=== PATIENT | male | born 1960 | race Asian ===

== ENCOUNTER → 2024-10-22 | Outpatient (CLI) | payer BC, SELFPAY ==
[2024-10-22 12:33] LABS: Glucose Estimated Average 123 mg/dL (80-131); Hemoglobin A1C 5.9 % Hgb (4.8-6.0)
[2024-10-22 12:52] LABS: Alanine Aminotransferase 40 U/L (10-49); Albumin, Serum 4.7 gm/dL (3.4-4.8); Albumin/Globulin Ratio 1.7 (1.2-2.2); Alkaline Phosphatase 74 U/L (46-116); Anion Gap 10 (7-16); Aspartate Amino Transferase 23 U/L (0-34); BUN/Creatinine Ratio 12 Ratio (12-20); Bilirubin,Total 0.8 mg/dL (0.3-1.2); Blood Urea Nitrogen 17 mg/dL (9-23); Calcium 10.1 mg/dL (8.3-10.6); Calcium (Corrected) 10.1 mg/dL (8.5-10.1); Carbon Dioxide 27.4 mMol/L (20.0-31.0); Cardiac Risk Estimate 2.8 RATIO (4.0-6.7); Chloride 103 mMol/L (98-107); Cholesterol 156 mg/dL (132-200); Creatinine (Component) 1.4 mg/dL (0.6-1.3); Globulin 2.8 gm/dL (2.3-3.5); Glucose 101 mg/dL (74-106); HDL Cholesterol 56 mg/dL (40-60); LDL Cholesterol,Calculated 73 mg/dL (0-130); Osmolality,Calculated 280 (275-295); Potassium 5.1 mMol/L (3.4-5.1); Sodium 140 mMol/L (136-145); Total Protein 7.5 gm/dL (5.7-8.2); Triglycerides 136 mg/dL (30-150); Uric Acid 6.6 mg/dL (3.7-9.2); eGFR 56 See Note
== END | disposition home or self-care (01) ==
LOC: COPL 11:14
PROVIDERS: PCP Family Medicine; Referring Provider Family Medicine; Visit Provider Family Medicine
DX: E78.2 Mixed hyperlipidemia (principal); E11.9 Type 2 diabetes mellitus without complications; M10.9 Gout, unspecified
CPT/HCPCS: 36415; 80053; 80061; 83036; 84550

== ENCOUNTER 2024-11-06 17:12 | Emergency (ER) | payer BC, SELFPAY ==
[2024-11-06 17:14] VITALS: BMI 34.4
[2024-11-06 17:22] VITALS: BP 145/89; PULSE 84; RESP 16; TEMP 36.6; O2SAT 97
--- NOTE | 2024-11-06 17:43 | EKG_ITS ---
[facility] Test Date: 2024-11-06 Pat Name: REGAN BIRD Department: Room: - Gender: Male Senior Reliability Engineer: : 1960 Requested By: Wade Decker Order Number: [id number] Reading MD: Wade Decker Measurements Intervals [place] Rate: 72 P: 48 OK: 191 QRS: -9 QRSD: 106 T: 46 QT: 359 QTc: 395 Interpretive Statements SINUS RHYTHM INDETERMINATE AXIS PATTERN CONSISTENT WITH PULMONARY DISEASE Compared to ECG 03/17/2023 17:19:13 Indeterminate axis now present /store/S0/[id number]/ecg/[id number].pdf
--- NOTE | 2024-11-06 17:43 | XR_ITS ---
Examination: PA lateral chest 2 views TECHNIQUE: Upright PA and lateral chest 2 views Exam date and time: November 06, 2024, 1807 hours Comparison March 18, 2023 INDICATIONS: Back pain chest pain today FINDINGS: Normal heart size. Lungs are clear. Moderate thoracic spondylosis IMPRESSION: No active disease.
--- NOTE | 2024-11-06 17:44 | XR_ITS ---
Examination: CTA chest with intravenous contrast 2-D reconstructions 3-D reconstructions, vascular Date and time of exam: November 06, 2024 10:33 PM INDICATIONS: Back pain chest pain shortness of breath today CTDI: vol (mGy) 15 DLP: (mGycm) 698 Technique: Multiple axial sections of the thorax have been obtained. 3 mm slice thickness, from below the hemidiaphragms to above the apices of the lungs. Mediastinal and lung density settings have been obtained. 2-D sagittal and coronal reconstructions. 3-D angiographic renderings, 3-D volume renderings, 3D post processing, vascular maximum intensity projections obtained. Contrast administered is ACC Isovue 300. Low dose protocols were performed. One or more of the following dose reduction techniques were used; automated exposure control, adjustment of the mA and/or KV according to patient size, use of iterative reconstruction technique. Findings: No thoracic aortic aneurysm and dilatation Main pulmonary artery segment 32 mm No pulmonary artery filling defects No paratracheal tracheobronchial or bronchopulmonary adenopathy 5 mm pulmonary nodule left lower lobe image 243 No pneumonia or pulmonary edema No bladder disease No visualized liver or splenic lesion Tiny gallstones No pancreatic or adrenal mass Left kidney not visualized IMPRESSION: Negative for pulmonary artery emboli No mediastinal lymphadenopathy. No pneumonia or pulmonary edema 5 mm pulmonary nodule left lower lobe, recommend 6 month follow-up CT chest without contrast to document stability of this nodule
--- NOTE | 2024-11-06 17:44 | PD.EDRME ---
Rapid Medical Screening Exam E Arrival date/time: 11/06/24 17:12 64-year-old male with a history of hypertension, pulmonary embolism on Xarelto presents to the emergency room with a chief complaint of thoracic back pain, pain with inspiration x 1 day. I have greeted and performed a focused initial assessment of this patient. A comprehensive ED assessment and evaluation of the patient, analysis of all test results, and completion of the medical decision making process will be conducted by additional ED providers. Chief Complaint: Back Pain/Injury Vital signs: Vital Signs Temperature 97.9 F 11/06/24 17:22 Pulse Rate 84 11/06/24 17:22 Respiratory Rate 16 11/06/24 17:22 Blood Pressure 145/89 H 11/06/24 17:22 Pulse Oximetry (%) 97 11/06/24 17:22 Oxygen Delivery Method Room Air 11/06/24 17:22 Vital signs reviewed by provider: Yes
[2024-11-06 18:08] LABS: Basophils # (Auto) 0.1 Thou/mm3 (0.0-0.2); Basophils % (Auto) 1 % (0-2.5); Eosinophils # (Auto) 0.1 Thou/mm3 (0.0-0.5); Eosinophils % (Auto) 2 % (0-10); Hematocrit 44.9 % (41.0-53.0); Hemoglobin 15.3 g/dL (13.5-16.0); Immature Granulocytes % (Auto) 0 % (0-0); Immature Granulocytes Auto 0.01 Thou/mm3 (0.00-0.00); Lymphocytes # (Auto) 1.6 Thou/mm3 (1.0-4.8); Lymphocytes % (Auto) 26 % (10-50); Mean Corpuscular HGB Conc 34.1 g/dl (31.0-37.0); Mean Corpuscular Hemoglobin 29.2 pg (25.0-35.0); Mean Corpuscular Volume 86 fL (80-100); Monocytes # (Auto) 0.5 Thou/mm3 (0.0-0.8); Monocytes % (Auto) 8 % (0-12); Neutrophils % (Auto) 63 % (37-80); Nucleated Red Blood Cell % 0 /100 WBC (0); Platelet Count 224 Thou/mm3 (140-440); RDW Standard Deviation 41.9 fL (35.1-43.9); Red Blood Count 5.24 Miln/mm3 (4.50-5.90); White Blood Count 6.3 Thou/mm3 (3.8-10.6)
[2024-11-06 18:23] LABS: INR 1.1 (0.9-1.3); Partial Thromboplastin Time 33.6 Seconds (22.0-36.0); Prothrombin Time 11.7 Seconds (9.0-12.2)
[2024-11-06 18:25] LABS: B-Type Natriuretic Peptide < 20 pg/mL (0-100)
[2024-11-06 18:26] LABS: Alanine Aminotransferase 33 U/L (10-49); Albumin, Serum 4.7 gm/dL (3.4-4.8); Albumin/Globulin Ratio 1.6 (1.2-2.2); Alkaline Phosphatase 69 U/L (46-116); Anion Gap 7 (7-16); Aspartate Amino Transferase 30 U/L (0-34); BUN/Creatinine Ratio 11 Ratio (12-20); Bilirubin,Total 0.7 mg/dL (0.3-1.2); Blood Urea Nitrogen 17 mg/dL (9-23); Carbon Dioxide 27.8 mMol/L (20.0-31.0); Chloride 108 mMol/L (98-107); Creatinine (Component) 1.5 mg/dL (0.6-1.3); Estimated Creatinine Clearance 56.7 mL/min (>60); Glucose 76 mg/dL (74-106); Magnesium 2.2 mg/dL (1.6-2.6); Osmolality,Calculated 285 (275-295); Potassium 4.9 mMol/L (3.4-5.1); Sodium 143 mMol/L (136-145); Total Protein 7.7 gm/dL (5.7-8.2); Troponin I < 0.002 ng/mL (0.0-0.045); eGFR 52 See Note
[2024-11-06 20:34] LABS: Collection Type, Urine Clean Catch; Squamous Epithelial Cell,Urine 0 /hpf (0-5)
[2024-11-06 20:38] LABS: Bilirubin,Urine Negative (Negative); Blood,Urine Negative (Negative); Clarity,Urine Clear (Clear/Hazy); Color,Urine Lt-Yellow (Lt Yel-Yel); Glucose, Urine Negative (Negative); Ketones,Urine Negative (Negative); Leukocyte Esterase,Urine Negative (Negative); Nitrite,Urine Negative (Negative); Protein,Urine Trace (Neg - Trace); RBC,Urine 7 /hpf (0-3); Specific Gravity,Urine 1.028 (1.001-1.035); Urobilinogen,Urine Negative mg/dL (0.0-1.0); WBC,Urine 2 /hpf (0-5)
--- NOTE | 2024-11-06 22:19 | EDNOTE_ITS ---
ED Back Injury Pain RME/HPI General Chief Complaint: Back Pain/Injury Stated Complaint: Shoulder blade pain x 2 days, Hx PE Time Seen by Provider: 11/07/24 01:37 Arrival date/time: 11/06/24 17:12 RME / HPI RME / HPI Narrative: 11/06/24 17:12 64-year-old male with a history of hypertension, pulmonary embolism on Xarelto presents to the emergency room with a chief complaint of thoracic back pain, pain with inspiration x 1 day. I have greeted and performed a focused initial assessment of this patient. A comprehensive ED assessment and evaluation of the patient, analysis of all test results, and completion of the medical decision making process will be conducted by additional ED providers. Dr. Tracy?s Main ED Evaluation: 64yo male with a history of gout, HLD, PE on Xarelto presents to the ED for a chief complaint of pain between his shoulder blades x 1 day. No radiation or migration. Patient states his pain worsens when he takes a deep breath. He denies any shortness of breath, fever, chills or any other associated symptoms. Denies any falls or injuries. Patient states he has been compliant with his Xarelto regimen. Related Data Home Medications ?Medication ?Instructions ?Recorded ?Confirmed allopurinol 100 mg tablet 100 mg PO QDAY #0 tabs 08/1003/17/23 (Zyloprim) propranolol 10 mg tablet 20 mg PO HS 10/07/19 3 Previous Rx's ?Medication ?Instructions ?Recorded rivaroxaban 15 mg (42)-20 mg (9) See Rx Instructions P O .COMPLEX 03/19/23 tablets in a starter pack (Xarelto #51 tabs DVT-PE Treatment 30-Day Starter) acetaminophen 500 mg capsule 500 mg PO Q6H PRN pain #3 0 caps 11/07/24 Allergies Allergy/AdvReac Type Severity Reaction Status Date / Time Penicillins Allergy Unknown UNKNOWN Verified 10/07/19 07:04 Review of Systems Review of Systems Systems Reviewed: All systems reviewed, normal except as documented Past Medical History Past Medical History CARDIAC: Negative Cardiac Disorders or Congestive Heart Failure RESPIRATORY: Negative Chronic Obstructive Pulmonary Disease (COPD) or Asthma GENITOURINARY: Negative Renal Disease MUSCULOSKELETAL: Positive Musculoskeletal Disorders and Gout ENDOCRINE: Negative Diabetes Mellitus Type 1 or Diabetes Mellitus Type 2 HEMATOLOGIC: Negative Sickle Cell Disease Social History SMOKING STATUS: Never smoker SUBSTANCE USE: does not use ED Exam Narrative Physical exam: GENERAL APPEARANCE: alert and oriented x 4, well-developed, well-nourished, no acute distress VITALS: All vitals were reviewed and the pulse ox is 97% on room air, which is normal according to my interpretation. HEENT: Normocephalic, atraumatic; pupils equal, round, reactive to light; EOMI; mucous membranes pink, moist; oropharynx clear NECK: Supple LUNGS: CTABL; no wheezes, no rales, no rhonchi HEART: Regular rate, regular rhythm; normal S1, S2; no murmurs ABDOMEN: non distended; normal BS; soft, no tenderness, no guarding, no rebound; no masses, no organomegaly, no hernia BACK: no CVA tenderness EXTREMITIES: atraumatic; no edema NEUROLOGIC: awake; alert and oriented x4; cranial nerves II-XII grossly intact; no focal sensory or motor deficits PSYCHIATRIC: appropriate mood and affect SKIN: warm, dry, normal color; no rashes Course Quality Measures none Orders Category Date Time Status CT Screening NOW Care 11/06/24 17:44 Completed EKG (ED ONLY) *Do not use* NOW Care 11/06/24 17:[address] angio chest Stat Exams 11/06/24 17:44 Completed EKG (ED Only) Stat Exams 11/06/24 17:43 Draft XR chest 2V Stat Exams 11/06/24 17:43 Completed B-Type Natriuretic Peptide Stat Lab 11/06/24 17:55 Completed CBC Stat Lab 11/06/24 17:55 Completed Comprehensive Metabolic Panel Stat Lab 11/06/24 17:55 Completed Magnesium Stat Lab 11/06/24 17:55 Completed Partial Thromboplastin Time Stat Lab 11/06/24 17:55 Completed Prothrombin Time with INR Stat Lab 11/06/24 17:55 Completed Troponin I Stat Lab 11/06/24 17:55 Completed Urinalysis Stat Lab 11/06/24 19:57 Completed Vital Signs Vital signs: Vital Signs Temperature 97.9 F 11/06/24 17:22 Pulse Rate 84 11/06/24 17:22 Respiratory Rate 16 11/06/24 17:22 Blood Pressure 145/89 H 11/06/24 17:22 Pulse Oximetry (%) 97 11/06/24 17:22 Oxygen Delivery Method Room Air 11/06/24 17:22 Back Pain / Injury MDM Narrative MDM Narrative:: Scribe Attestation: 11/06/24 - Shelley Vargas am scribing for and in the presence of Dr. Tracy. Patient data External records reviewed:: [facility] previous records (Per chart review, patient was admitted here on 03/17/23 for bilateral PE.) Clinical information provided by:: patient Social determinants that could affect healthcare access:: none Patient has the following chronic illnesses:: gout, HLD How is presenting disease/condition affected by chronic disease/condition?: uneffected by Evaluation data The following diagnostics were reviewed and interpreted by me:: lab results and radiology exam(s) Lab and/or radiology exams considered but not ordered:: none Interpretation Summary: CBC is normal, PT and INR are normal, PTT is normal, Creatinine is 1.5, Troponin is normal, BNP is normal, UA is unremarkable, according to my interpretation. EKG done at 1749, NSR, rate of 72, normal axis, no ectopy, no acute ischemia, according to my interpretation. -------- [facility] Report Signed Patient: REGAN BIRD Record#: [id number] Birthdate: 1960 Age/Sex: 64 / M Location: [facility] Attending Dr: Ordering Physician: Wade Sam Date of Service: 11/06/24 Procedure(s): CT angio chest Accession Number(s): [id number] cc: Wade Sam; Eddi Garrido MD; Charlotte Mohan MD~ Examination: CTA chest with intravenous contrast 2-D reconstructions 3-D reconstructions, vascular Date and time of exam: November 06, 2024 10:33 PM INDICATIONS: Back pain chest pain shortness of breath today CTDI: vol (mGy) 15 DLP: (mGycm) 698 Technique: Multiple axial sections of the thorax have been obtained. 3 mm slice thickness, from below the hemidiaphragms to above the apices of the lungs. Mediastinal and lung density settings have been obtained. 2-D sagittal and coronal reconstructions. 3-D angiographic renderings, 3-D volume renderings, 3D post processing, vascular maximum intensity projections obtained. Contrast administered is ACC Isovue 300. Low dose protocols were performed. One or more of the following dose reduction techniques were used; automated exposure control, adjustment of the mA and/or KV according to patient size, use of iterative reconstruction technique. Findings: No thoracic aortic aneurysm and dilatation Main pulmonary artery segment 32 mm No pulmonary artery filling defects No paratracheal tracheobronchial or bronchopulmonary adenopathy 5 mm pulmonary nodule left lower lobe image 243 No pneumonia or pulmonary edema No bladder disease No visualized liver or splenic lesion Tiny gallstones No pancreatic or adrenal mass Left kidney not visualized IMPRESSION: Negative for pulmonary artery emboli No mediastinal lymphadenopathy. No pneumonia or pulmonary edema 5 mm pulmonary nodule left lower lobe, recommend 6 month follow-up CT chest without contrast to document stability of this nodule Dictated By: Eddi Garrido MD Signed By: <Electronically signed by Eddi Garrido MD in [place]> 11/06/24 2329 [facility] Report Signed Patient: REGAN BIRD. Record#: [id number] Birthdate: 1960 Age/Sex: 64 / M Location: [facility] Attending Dr: Ordering Physician: Wade Sam Date of Service: 11/06/24 Procedure(s): CT angio chest Accession Number(s): [id number] cc: Wade Sam; Eddi Garrido MD; Charlotte Mohan MD~ Examination: CTA chest with intravenous contrast 2-D reconstructions 3-D reconstructions, vascular Date and time of exam: November 06, 2024 10:33 PM INDICATIONS: Back pain chest pain shortness of breath today CTDI: vol (mGy) 15 DLP: (mGycm) 698 Technique: Multiple axial sections of the thorax have been obtained. 3 mm slice thickness, from below the hemidiaphragms to above the apices of the lungs. Mediastinal and lung density settings have been obtained. 2-D sagittal and coronal reconstructions. 3-D angiographic renderings, 3-D volume renderings, 3D post processing, vascular maximum intensity projections obtained. Contrast administered is ACC Isovue 300. Low dose protocols were performed. One or more of the following dose reduction techniques were used; automated exposure control, adjustment of the mA and/or KV according to patient size, use of iterative reconstruction technique. Findings: No thoracic aortic aneurysm and dilatation Main pulmonary artery segment 32 mm No pulmonary artery filling defects No paratracheal tracheobronchial or bronchopulmonary adenopathy 5 mm pulmonary nodule left lower lobe image 243 No pneumonia or pulmonary edema No bladder disease No visualized liver or splenic lesion Tiny gallstones No pancreatic or adrenal mass Left kidney not visualized IMPRESSION: Negative for pulmonary artery emboli No mediastinal lymphadenopathy. No pneumonia or pulmonary edema 5 mm pulmonary nodule left lower lobe, recommend 6 month follow-up CT chest without contrast to document stability of this nodule Dictated By: Eddi Garrido MD Signed By: <Electronically signed by Eddi Garrido MD in [place]> 11/06/24 4997 Medications / Prescriptions Medications or Prescriptions considered but not ordered:: none Medication administrations:: see above, if any Consultations Consultation(s) initiated? (list below): No Diagnosis Differential diagnosis back pain/injury: other (back pain, PE, muscle strain) Most likely diagnosis given after review of the tests above:: see clinical impression below Admission Indicated Admission indicated?: not indicated Admission Request Was there a request for admission?: No Disposition Plan Disposition Plan: Discharge Discharge Attestation Discharge Attestation: The patient and all family members were given an opportunity to ask questions and understood the discharge instructions. Discharge instructions specifically effects, indications for sooner follow up or return to the emergency department, and the expected course of current diagnosis. Patient condition: Stable Discharge Plan Plan Patient Disposition: HOME (Self Care) Disposition Comment: Stable for discharge home Patient condition on transfer: Stable Prescriptions/Referrals Prescriptions/Med Rec: New acetaminophen 500 mg capsule 500 mg PO Q6H PRN (Reason: pain) Qty: 30 0RF No Action allopurinol [Zyloprim] 100 MG tablet 100 mg PO QDAY Qty: 0 propranolol 10 mg Tablet 20 mg PO HS Xarelto DVT-PE Treat 30d Start 15 mg (42)- 20 mg (9) tablets,dose pack See Rx Instructions .ROUTE .COMPLEX Qty: 51 0RF Rx Instructions: take one-15 mg tablet twice daily for 21 days, then one-20 mg tablet once daily; must take with meal/food Referrals: Charlotte Garcia MD [Primary Care Provider] - In 1 week Problem List Clinical Impression: Back pain Patient/Caregiver Discharge Instructions Discharge Activity: activity as tolerated Education Materials: ED Back Care Tips, ED Back Pain (Acute or Chronic) Additional Instructions: Please return to the emergency department if you have any worsening or any further medical problems and we will help you. Otherwise you should follow-up with your primary care doctor within the next several days Tonight your CT scan showed no evidence of pulmonary embolism. I have called in a prescription for extra strength Tylenol at your pharmacy. Take 2 tabs every 6 hours for pain. Print Language: Czech Stand Alone Forms: [facility]ra Award Info., Patient Portal Info Letter
[2024-11-07 00:47] VITALS: BP 134/88; PULSE 76; RESP 18; TEMP 36.6; O2SAT 98
== END 2024-11-07 02:16 | disposition home or self-care (01) ==
PROVIDERS: Nurse Practitioner Family; Emergency Provider Emergency Medicine; PCP Family Medicine
DX: M54.6 Pain in thoracic spine (principal); I10 Essential (primary) hypertension; E78.5 Hyperlipidemia, unspecified; Z86.711 Personal history of pulmonary embolism; R07.1 Chest pain on breathing
CPT/HCPCS: 36415; 71046; 71275; 80053; 81001; 83735; 83880; 84484; 85025; 85610; 85730; 93005; 99285; A4649; Q9967

== ENCOUNTER → 2025-02-16 | Outpatient (CLI) | payer BC, SELFPAY ==
[2025-02-16 13:00] LABS: Glucose Estimated Average 114 mg/dL (80-131); Hemoglobin A1C 5.6 % Hgb (4.8-6.0)
[2025-02-16 13:22] LABS: Alanine Aminotransferase 25 U/L (10-49); Albumin, Serum 4.5 gm/dL (3.4-4.8); Albumin/Globulin Ratio 1.6 (1.2-2.2); Alkaline Phosphatase 72 U/L (46-116); Anion Gap 9 (7-16); Aspartate Amino Transferase 26 U/L (0-34); BUN/Creatinine Ratio 11 Ratio (12-20); Bilirubin,Total 1.1 mg/dL (0.3-1.2); Blood Urea Nitrogen 15 mg/dL (9-23); Calcium 9.7 mg/dL (8.3-10.6); Calcium (Corrected) 9.7 mg/dL (8.5-10.1); Carbon Dioxide 27.3 mMol/L (20.0-31.0); Cardiac Risk Estimate 2.7 RATIO (4.0-6.7); Chloride 106 mMol/L (98-107); Cholesterol 154 mg/dL (132-200); Creatinine (Component) 1.4 mg/dL (0.6-1.3); Globulin 2.8 gm/dL (2.3-3.5); Glucose 97 mg/dL (74-106); HDL Cholesterol 58 mg/dL (40-60); LDL Cholesterol,Calculated 74 mg/dL (0-130); Osmolality,Calculated 283 (275-295); Potassium 4.8 mMol/L (3.4-5.1); Sodium 142 mMol/L (136-145); Total Protein 7.3 gm/dL (5.7-8.2); Triglycerides 109 mg/dL (30-150); Uric Acid 6.1 mg/dL (3.7-9.2); eGFR 56 See Note
== END | disposition home or self-care (01) ==
LOC: COPL 11:35
PROVIDERS: PCP Family Medicine; Referring Provider Family Medicine; Visit Provider Family Medicine
DX: E11.22 Type 2 diabetes mellitus with diabetic chronic kidney disease (principal); N18.31 Chronic kidney disease, stage 3a; M10.9 Gout, unspecified; E78.2 Mixed hyperlipidemia
CPT/HCPCS: 36415; 80053; 80061; 83036; 84550

== ENCOUNTER → 2025-07-05 | Outpatient (CLI) | payer BC, SELFPAY ==
[2025-07-05 12:33] LABS: Alanine Aminotransferase 22 U/L (10-49); Albumin, Serum 4.8 gm/dL (3.4-4.8); Albumin/Globulin Ratio 1.8 (1.2-2.2); Alkaline Phosphatase 66 U/L (46-116); Anion Gap 9 (7-16); Aspartate Amino Transferase 26 U/L (0-34); BUN/Creatinine Ratio 11 Ratio (12-20); Bilirubin,Total 0.9 mg/dL (0.3-1.2); Blood Urea Nitrogen 14 mg/dL (9-23); Calcium 9.5 mg/dL (8.3-10.6); Calcium (Corrected) 9.5 mg/dL (8.5-10.1); Carbon Dioxide 27.6 mMol/L (20.0-31.0); Cardiac Risk Estimate 2.4 RATIO (4.0-6.7); Chloride 106 mMol/L (98-107); Cholesterol 150 mg/dL (132-200); Creatinine (Component) 1.3 mg/dL (0.6-1.3); Globulin 2.7 gm/dL (2.3-3.5); Glucose 92 mg/dL (74-106); HDL Cholesterol 63 mg/dL (40-60); LDL Cholesterol,Calculated 69 mg/dL (0-130); Osmolality,Calculated 285 (275-295); Potassium 4.2 mMol/L (3.4-5.1); Sodium 143 mMol/L (136-145); Total Protein 7.5 gm/dL (5.7-8.2); Triglycerides 91 mg/dL (30-150); eGFR > 60 See Note
[2025-07-05 15:25] LABS: Glucose Estimated Average 111 mg/dL (80-131); Hemoglobin A1C 5.5 % Hgb (4.8-6.0)
== END | disposition home or self-care (01) ==
LOC: COPL 10:41
PROVIDERS: PCP Family Medicine; Referring Provider Family Medicine; Visit Provider Family Medicine
DX: E11.22 Type 2 diabetes mellitus with diabetic chronic kidney disease (principal); N18.9 Chronic kidney disease, unspecified
CPT/HCPCS: 36415; 80053; 80061; 83036